=== PATIENT | female | born 1985 | race Caucasian/White ===

== ENCOUNTER 2023-05-01 15:41 | Emergency (ER) | payer BC, SELFPAY ==
[2023-05-01 15:56] VITALS: BP 131/104; PULSE 83; RESP 16; TEMP 36.7; O2SAT 100
--- NOTE | 2023-05-01 16:14 | ED.EYEPROB ---
HPI - Eye Problem General Chief complaint: Eye Problems Stated complaint: both eyes itch,discharge Time Seen by Provider: 05/01/23 16:26 Source: patient and RN notes reviewed Mode of arrival: ambulatory Limitations: no limitations History of Present Illness HPI Narrative: 38-year-old female presents with concern for ongoing eye redness, itching, drainage. Reports she was seen in other urgent care and diagnosed with conjunctivitis, she started on antibiotic drops and has not had any relief. She also reports she has had nasal congestion, rhinorrhea for the same amount of time. She has not been taking any cold medicines. She reports some drainage from both eyes chief complaint: eye redness Related Data Home Medications Medication Instructions Recorded Confirmed bupropion HCl 300 mg 24 hr tablet, 300 mg PO DIRECTED 05/01/23 05/01/23 extended release polymyxin B sulfate 10,000 05/01/23 unit-trimethoprim 1 mg/mL eye drops sumatriptan succinate 50 mg tablet 50 mg PO DIRECTED 05/01/23 05/01/23 Allergies Allergy/AdvReac Type Severity Reaction Status Date / Time Penicillins Allergy Rash Verified 05/01/23 16:02 Review of Systems Review of Systems: CONSTITUTIONAL: Denies malaise, chills, sweats, or fever. EYES: Denies visual changes. Reports bilateral redness, irritation, discharge. ENT: Reports rhinorrhea, congestion. Denies sinus pain, otalgia or sore throat. SKIN: Denies rash or itching. NEUROLOGIC: Denies numbness, weakness, or headache. PSYCHIATRIC: Denies anxiety or depression. All systems reviewed & are unremarkable except as noted in HPI and below PMFSH Comments At time of signature, agree with nursing past medical, surgical, social and family history. There is no relevant family history pertinent to the presenting complaint Exam Narrative: GENERAL: Well-appearing, well-nourished, and in no acute distress. HEAD: Normocephalic, atraumatic. EYES: PERRLA, sclera clear, and EOMI. No nystagmus. Bilateral sclera and conjunctivae injected. Upper and lower eyelid unremarkable, no periorbital edema noted ENT: Nares clear. Mucous membranes moist. TM pearly macias with sharp light reflex bilaterally; no tragal tenderness. NECK: Supple. CHEST: No respiratory distress. Speaks in full sentences. HEART: Regular rate and rhythm. SKIN: Warm, dry, no visible rash. NEURO: Alert and oriented x3. PSYCH: Normal mood and affect Course Course Emergency Course: Patient is aware of diagnosis, understands and agrees to treatment plan. Anticipatory guidance given. Patient agrees to follow-up as directed and is aware of reasons to seek care at the emergency department. Portions of this record may have been created with voice recognition software Level of Care: Express Care Visit Vital Signs Vital signs: Vital Signs Temperature 98.1 F 05/01/23 15:56 Pulse Rate 83 05/01/23 15:56 Respiratory Rate 16 05/01/23 15:56 Blood Pressure 131/104 H 05/01/23 15:56 Pulse Oximetry 100 05/01/23 15:56 Oxygen Delivery Room Air 05/01/23 15:56 Temperature 98.1 F 05/01/23 15:56 Pulse Rate 83 05/01/23 15:56 Respiratory Rate 16 05/01/23 15:56 Blood Pressure 131/104 H 05/01/23 15:56 Pulse Oximetry 100 05/01/23 15:56 Oxygen Delivery Room Air 05/01/23 15:56 Reviewed. MDM - Eye Problem MDM Narrative Medical decision making narrative: Consideration of the following conditions may be warranted for the presenting problem, they are not final diagnoses: Bacterial conjunctivitis, allergic conjunctivitis, viral conjunctivitis, foreign body, blepharitis, chalazion, hordeolum, corneal abrasion, preseptal cellulitis, orbital cellulitis. No evidence of proptosis, ophthalmoplegia, vision loss, pain with eye movement. Exam findings show no acute concerns or changes; patient is non-toxic appearing and is in no distress. Patient is appropriate for outpatient treatment and follow-up. Critical
== END 2023-05-01 16:44 | disposition home or self-care (01) ==
PROVIDERS: Emergency Provider Nurse Practitioner
DX: H10.33 Unspecified acute conjunctivitis, bilateral (principal); J06.9 Acute upper respiratory infection, unspecified
CPT/HCPCS: 99203; G0463